=== PATIENT | female | born 1970 | race Caucasian/White ===

== ENCOUNTER 2020-11-13 06:06 | Day surgery (SDC) | payer OTHER ==
[2020-11-06 17:14] VITALS: BMI 20.3
[2020-11-13] MEDS ORDERED: EPINEPHrine 1:1,000 1 MG/1 ML - 30ML VIAL (INJECTION) ONE (07:15)
[2020-11-13] MEDS ORDERED: VANCOMYCIN 1,000 MG VIAL (RESTRICTED TO ID ONLY) ONE (07:15)
[2020-11-13] MEDS ORDERED: MIDAZOLAM HCL 2 MG/2 ML SINGLE DOSE VIAL ONE (07:18)
[2020-11-13] MEDS ORDERED: SODIUM CHLORIDE 0.9% P/F 10 ML VIAL IJ ONE (07:19)
[2020-11-13] MEDS ORDERED: BUPIVACAINE LIPOSOME/PF (EXPAREL) 266 MG/20 ML VIAL ONE (07:19)
[2020-11-13] MEDS ORDERED: ONDANSETRON 4 MG/2 ML VIAL ONE ×2 (07:39→09:29)
[2020-11-13] MEDS ORDERED: PROPOFOL 20 ML ONE (07:39)
[2020-11-13] MEDS ORDERED: ceFAZolin SODIUM 1 GM VIAL ONE (07:39)
[2020-11-13] MEDS ORDERED: SUCCINYLCHOLINE CHLORIDE 200 MG/10 ML SYRINGE ONE (07:39)
[2020-11-13] MEDS ORDERED: DEXAMETHASONE SOD PHOSPHATE 4 MG/1 ML VIAL ONE ×2 (07:39→09:29)
[2020-11-13] MEDS ORDERED: TRANEXAMIC ACID 1000 MG/10 ML VIAL ONE (08:11)
[2020-11-13] MEDS ORDERED: KETOROLAC TROMETHAMINE 30 MG/1 ML VIAL ONE (09:29)
[2020-11-13] MEDS ORDERED: ONDANSETRON 4 MG/2 ML VIAL IVPUSH PRN (10:54)
[2020-11-13] MEDS ORDERED: oxyCODONE HCL 5 MG TABLET PO PRN ×2 (10:54)
[2020-11-13] MEDS ORDERED: ACETAMINOPHEN 1000 MG/100 ML VIAL (NON FORMULARY) IVPB ONE (10:55)
[2020-11-13] MEDS ORDERED: LACTATED RINGERS SOLUTION 1,000 ML IV SCH (11:00)
[2020-11-13] MEDS ORDERED: ACETAMINOPHEN INJECTION 100 ML IVPB ONE (11:11)
[2020-11-13] MEDS: PROMETHAZINE HCL 25 MG/1 ML VIAL ONE ×2 (11:50→12:00)
[2020-11-13 13:40] VITALS: BP 135/81; PULSE 80; TEMP 97.9
== END 2020-11-13 13:40 | disposition home or self-care (01) ==
LOC: FASU 06:06
PROVIDERS: ATTEND Orthopaedic Surgery Sports Medicine
PROC: 0MRP4JZ Replacement of Left Knee Bursa and Ligament with Synthetic Substitute, Percutaneous Endoscopic Approach (ICD-10-PCS; principal; 2020-11-13 08:22)
DX: S83.512A Sprain of anterior cruciate ligament of left knee, initial encounter (principal); X58.XXXA Exposure to other specified factors, initial encounter; Y93.9 Activity, unspecified; Y92.9 Unspecified place or not applicable; Y99.9 Unspecified external cause status
CPT/HCPCS: 29888; C1713; 73560-TC-LT-FY; 81025; 94760; J0131